=== PATIENT | male | born 1990 | race African-American/Black ===

== ENCOUNTER 2024-03-13 22:32 | Emergency (ER) | payer OTHER, SELFPAY ==
--- NOTE | 2024-03-13 23:23 | ED_ITS ---
HPI - Dental/Oral General Chief complaint: Dental/Oral Stated complaint: R tooth pain Time Seen by Provider: 03/13/24 22:48 History of Present Illness HPI Narrative: 33-year-old male presents to emergency department for right lower dental pain for several weeks. Patient states he has a fracture to to to the right lower molar and over the past couple weeks it is constant pain. He denies recent injury or trauma, fever, difficulty swallowing or breathing. States he has not seen a dentist for this. Related Data Allergies Allergy/AdvReac Type Severity Reaction Status Date / Time No Known Allergies Allergy Verified 03/13/24 22:35 Review of Systems Review of Systems: All systems reviewed & are unremarkable except as noted in HPI and below Exam Narrative: GENERAL: Well-appearing, well-nourished, and in no acute distress. HEAD: Normocephalic, atraumatic. EYES: PERRLA and EOMI. ENT: Nares clear, no rhinorrhea or epistaxis. Mucous membranes moist. Cavity to right lower molar with tenderness to palpation. No periapical abscess or surrounding edema. No facial edema or submandibular edema. Floor mouth is soft without crepitus. No trismus. Patient is tolerating secretions and speaking in full sentences. No airway compromise. NECK: Supple. CHEST: Clear to auscultation. No respiratory distress. HEART: Regular rate and rhythm. No murmur heard. Normal peripheral pulses EXTREMITIES: Normal range of motion. No edema. SKIN: Warm, dry, no rash. NEURO: No focal deficits. Alert and oriented x3 MDM - Dental/Oral MDM Narrative Medical decision making narrative: 33-year-old male presents to the emergency department for right lower dental pain for several weeks. Patient is nontoxic appearing. Exam is significant for cavity to the right lower molar with tenderness palpation. There is no surrounding edema, no evidence of periapical abscess. No facial edema or submandibular edema. He has no airway compromise and is tolerating secretions. Despite cavities worse the patient's pain. Will prescribe Augmentin due to possibility of concurrent infection the source of recent worsening pain and high-dose ibuprofen. He is given a dose of Augmentin and [place] in the ED. He was given referrals for Dentistry and encouraged to follow-up. Strict ED return precautions discussed. He is agreeable to plan verbalized understanding. Discharged in stable condition. Discharge Plan Discharge Clinical Impression: Toothache, Dental caries Patient Disposition: Home, Self-Care Condition: Stable Instructions: Antibiotic Form, Toothache (ED) Additional Instructions: Your evaluated in the emergency department for dental pain. Please take the an tibiotics as directed ibuprofen as needed for pain. Please follow-up closely with the dentist a referred you to. Return to the emergency department if you develop a fever, you are unable to swallow, difficulty breathing, or other concerning symptoms. Prescriptions: New amoxicillin-pot clavulanate 875-125 mg tablet 1 tablet PO Q12H Qty: 14 0RF ibuprofen 800 mg tablet 800 mg PO TID PRN (Reason: pain) Qty: 20 0RF Follow-up/Referrals: PHYSICIAN,COMPENSATION PROGRAMS MANAGER [Primary Care Provider] - Stand Alone Forms: Work/School Release IP
[2024-03-13] MEDS: AMOXICILLIN/CLAVULANATE K 875-125 MG TAB 1 TABLET PO (23:41)
[2024-03-13] MEDS: HYDROcodone/acetaminophen (*CRX) 5-325 MG TABLET 1 TAB PO (23:41)
== END 2024-03-13 23:44 | disposition home or self-care (01) ==
PROVIDERS: Emergency Provider Physician Assistant
DX: K02.9 Dental caries, unspecified (principal)
CPT/HCPCS: 99283; A9270